=== PATIENT | male | born 1940 | race Caucasian/White ===

== ENCOUNTER 2017-07-23 20:45 | Inpatient (IN) | payer OTHER ==
--- NOTE | 2017-07-23 21:06 | CPEKG ---
Heart Rate: 80 RR Interval: 750 P-R Interval: 204 QRSD Interval: 146 QT Interval: 428 QTC Interval: 494 P Micro: 75 QRS Micro: 7 T Wave Micro: 119 EKG Severity - ABNORMAL ECG - EKG Impression: SINUS RHYTHM EKG Impression: LEFT BUNDLE BRANCH BLOCK Electronically Signed By: Noman Drummond 23-Jul-2017 22:40:35
[2017-07-23] MEDS ORDERED: ASPIRIN 81 MG CHEWABLE TAB PO ONE (21:10)
[2017-07-23 21:15] LABS: PLATELET COUNT 221 10^3/uL (150-400)
[2017-07-23] MEDS ORDERED: NS 1,000 ML IV ONE ×2 (21:38→22:26)
--- NOTE | 2017-07-23 21:57 | EDPHY ---
H & P Stated Complaint: chest pain with cough Time Seen by Provider: 07/23/17 21:05 HPI/ROS: This pt. reports onset of coryza with sore throat 2 weeks ago followed by cough - dry & hacking in nature over the past few days associated with shortness of breath and chest pain. He reports that the pain is chest is achy in nature worse with a deep breath or cough and the symptoms concerned him for potential PE as he had similar symptoms with his pulmonary embolism a little over a year ago aunt's stop taking the Eliquis after 1 year of treatment in June-last month. ROS: Low-grade fevers over the past 24 hr. No high fevers or chills. No other constitutional symptoms. HEENT: As per HPI. No facial pain. No ear pain. Pulmonary: No sputum production. No hemoptysis. No respiratory distress. Cardiovascular: No heart palpitations. He does have a mild ache in between deep breaths in the same area of his dtuuu-scdj-ahrza. This pain does not radiate. No leg swelling or pain GI: No nausea vomiting or diarrhea : No complaints Integumentary: No complaints Endocrine: No complaints Neuro: No numbness or tingling. 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 cardiomyopathy, HTN. PRIOR LBBB per family - Family History Significant Family History: No pertinent family hx - Social History Smoking Status: Never smoked Alcohol Use: None Drug Use: None Additional Social History: No recent prolonged travel or immobilization. - Physical Exam Exam: Vital signs notable for mild hypoxia on room air at 92%. Other vitals are normal except for low-grade fever of 38 centigrade General Appearance: Alert, no distress. Eyes: Pupils equal and round no pallor or injection. ENT, Mouth: Mucous membranes moist. Respiratory: There are no retractions, lungs are clear to auscultation. Cardiovascular: Regular rate and rhythm. No murmur gallop or rub Gastrointestinal: Abdomen is soft and nontender, no masses, bowel sounds normal. Neurological: GCS 15 with no focal deficits Skin: Warm and dry, no rashes. Musculoskeletal: Neck is supple nontender. Extremities are symmetrical, full range of motion. Psychiatric: Mood and affect are normal DIFFERENTIAL DIAGNOSIS: After history and physical exam differential diagnosis was considered for pulmonary embolism, pneumonia, bronchitis, influenza, myocardial ischemia Constitutional: Initial Vital Signs Temperature (C) 37.9 C 07/23/17 20:49 Heart Rate 82 07/23/17 20:49 Respiratory Rate 20 07/23/17 20:49 Blood Pressure 168/94 H 07/23/17 20:49 O2 Sat (%) 92 07/23/17 20:49 O2 Delivery Mode Room Air Allergies/Adverse Reactions: No Known Allergies Allergy (Unverified 07/23/17 20:53) Home Medications: Medication Instructions Recorded Carvedilol 07/23/17 Medical Decision Making - Diagnostics EKG Interpretation: 12 lead EKG performed shortly after arrival indication chest pain Sinus rhythm on this EKG performed at 9:02 p.m. Intervals: To P R of 2 4, QRS of 146, QTC of 494 [place]: P of 75, QRS of 7, T1 18 Overall assessment sinus rhythm with left bundle branch block. No previously performed EKGs available for comparison. Patient's family gives verbal report that he had a left bundle branch block in the past. Imaging Results: Two view chest x-ray: Mild airway disease by my interpretation without other significant abnormalities. CT angio chest with saddle embolism straddling the bifurcation, but without complete obstruction or evidence of right heart strain Imaging: Discussed imaging studies w/ carbon dioxide operator Radiologist (CT angio chest I discussed with Dr. Quintanilla), I viewed and interpreted images myself (Chest x- ray) ED Course/Re-evaluation: IV, monitor, nasal cannula O2 Aspirin 324 Upon review of patient's labs-mild leukocytosis, normal chemistries, normal troponin, significantly elevated D-dimer I add on coags and ordered CT angio chest. Given patient's elevated creatinine use given normal saline bolus 1st and will use a care management associate dye load and then follow with a 2nd L saline after the study. I spoke with patient in his family regarding his elevated D-dimer the need to proceed with CT angio. Patient understands and is comfortable with the plan. At 10:25 p.m. he is in the CT scanner CT angio chest confirms pulmonary embolism-saddle embolism straddling the bifurcation but without complete obstruction or evidence of right heart strain. I counseled patient regarding this finding any started on Lovenox after conversation with hospitalist Dr. Pryor with plan to admit to PCU. Patient is accepted to the PCU at [facility] A call was placed to our hospitalist at 11:10 p.m. waiting their call back to secure transfer and admission. 2nd L normal saline bolus upon patient's return from CT scan Total bedside critical care time: 15 min The patient remains hemodynamically stable. He reports 4-5/10 chest discomfort but declines any analgesics at this time. - Data Points Laboratory Results: Laboratory Results 07/23/17 21:05 07/23/17 21:05 07/23/17 07/23/17 07/23/17 23:05 21:05 21:05 WBC RBC Hgb Hct MCV MCH MCHC RDW Plt Count MPV Neut % (Auto) Lymph % (Auto) [place] % (Auto) Eos % (Auto) Baso % (Auto) Nucleat RBC Rel Count Absolute Neuts (auto) Absolute Lymphs (auto) Absolute Monos (auto) Absolute Eos (auto) Absolute Basos (auto) Absolute Nucleated RBC Immature Gran % Immature Gran # PT 13.6 SEC SEC (12.0-15.0) INR 1.05 (0.83-1.16) APTT 34.8 SEC SEC (23.0-38.0) D-Dimer 7.75 ug/mLFEU H ug/mLFEU (0.00-0.50) Sodium Potassium Chloride Carbon Dioxide Anion Gap BUN Creatinine Estimated GFR Glucose Calcium Troponin I NT-Pro-B Natriuret Pep Pending Influenza A,B Rapid NEGATIVE FOR FLU (NEGATIVE) 07/23/17 07/23/17 21:05 21:05 WBC 11.32 10^3/uL H 10^3/uL (3.80-9.50) RBC 5.16 10^6/uL 10^6/uL (4.40-6.38) Hgb 14.6 g/dL g/dL (13.7-17.5) Hct 43.9 % % (40.0-51.0) MCV 85.1 fL fL (81.5-99.8) MCH 28.3 pg pg (27.9-34.1) MCHC 33.3 g/dL g/dL (32.4-36.7) RDW 12.6 % % (11.5-15.2) Plt Count 221 10^3/uL 10^3/uL (150-400) MPV 9.6 fL fL (8.7-11.7) Neut % (Auto) 67.8 % % (39.3-74.2) Lymph % (Auto) 20.7 % % (15.0-45.0) Bucks % (Auto) 8.8 % % (4.5-13.0) Eos % (Auto) 1.8 % % (0.6-7.6) Baso % (Auto) 0.4 % % (0.3-1.7) Nucleat RBC Rel Count 0.0 % % (0.0-0.2) Absolute Neuts (auto) 7.67 10^3/uL H 10^3/uL (1.70-6.50) Absolute Lymphs (auto) 2.34 10^3/uL 10^3/uL (1.00-3.00) Absolute Monos (auto) 1.00 10^3/uL H 10^3/uL (0.30-0.80) Absolute Eos (auto) 0.20 10^3/uL 10^3/uL (0.03-0.40) Absolute Basos (auto) 0.05 10^3/uL 10^3/uL (0.02-0.10) Absolute Nucleated RBC 0.00 10^3/uL 10^3/uL (0-0.01) Immature Gran % 0.5 % % (0.0-1.1) Immature Gran # 0.06 10^3/uL 10^3/uL (0.00-0.10) PT INR APTT D-Dimer Sodium 140 mEq/L mEq/L (135-145) Potassium 4.2 mEq/L mEq/L (3.5-5.2) Chloride 102 mEq/L mEq/L (97-110) Carbon Dioxide 22 mEq/l mEq/l (22-31) Anion Gap 16 mEq/L mEq/L (8-16) BUN 21 mg/dL mg/dL (7-23) Creatinine 1.7 mg/dL H mg/dL (0.7-1.3) Estimated GFR 39 Glucose 148 mg/dL H mg/dL (70-100) Calcium 8.7 mg/dL mg/dL (8.5-10.4) Troponin I 0.019 ng/mL ng/mL (0.000-0.034) NT-Pro-B Natriuret Pep Influenza A,B Rapid Medications Given: Discontinued Medications Aspirin (Aspirin) 324 mg PO EDNOW ONE Stop: 07/23/17 21:11 Last Admin: 07/23/17 21:20 Dose: 324 mg Benzonatate (Tessalon Pearles) 200 mg PO EDNOW ONE Stop: 07/23/17 21:59 Last Admin: 07/23/17 22:01 Dose: 200 mg Sodium Chloride (Ns) 1,000 mls @ 0 mls/hr IV ONCE ONE; Wide Open PRN Reason: Protocol Stop: 07/23/17 21:39 Last Admin: 07/23/17 21:42 Dose: 1,000 mls Sodium Chloride (Ns) 1,000 mls @ 0 mls/hr IV ONCE ONE; Wide Open PRN Reason: Protocol Stop: 07/23/17 22:27 Last Admin: 07/23/17 22:48 Dose: 1,000 mls Departure - Departure Disposition: [facility] In[facility] Acute Clinical Impression: Renal insufficiency Pulmonary embolism Qualifiers: Pulmonary embolism type: saddle Chronicity: acute Acute cor pulmonale presence : without acute cor pulmonale Qualified Code(s): I26.92 - Saddle embolus of pulmonary artery without acute cor pulmonale Condition: Serious Referrals: Neftali Patel DO [Primary Care Provider] - As per Instructions
[2017-07-23] MEDS ORDERED: BENZONATATE 100 MG CAP PO ONE (21:58)
[2017-07-23] MEDS ORDERED: IOPAMIDOL (ISOVUE 370) 100 ML BTL IV ONE (22:05)
[2017-07-23 22:07] LABS: INR 1.05 (0.83-1.16); PROTIME(PATIENT) 13.6 SEC (12.0-15.0)
[2017-07-23] MEDS ORDERED: HEPARIN 10,000 UNIT/10 ML MDV IVP ONE (23:15)
[2017-07-23] MEDS ORDERED: HEPARIN/DEXTROSE 500 ML IV ONE (23:15)
[2017-07-23] MEDS ORDERED: ACETAMINOPHEN 325 MG TAB PO PRN (23:27)
[2017-07-23] MEDS ORDERED: ONDANSETRON DISINTEGRATING 4 MG TAB PO PRN (23:27)
[2017-07-23] MEDS ORDERED: ONDANSETRON 4 MG/2 ML VIAL IVP PRN (23:27)
[2017-07-23] MEDS ORDERED: ENOXAPARIN 100 MG/ML SYR SC ONE (23:28)
--- NOTE | 2017-07-24 00:18 | PDGENHP ---
History and Physical - Chief Complaint SOB - History of Present Illness 76 yo M w/ hx of idiopathic CM, CKD, and PE presented to ED with shortness of breath and chest pain after several weeks of URI symptoms. Patient had seen his PCP on two occasions over the last week for URI symptoms. Then over the last day he developed shortness of breath and chest pain, worse with deep inspiration or cough. He was concerned because these symptoms resembled those of his last PE, a little over a year ago. He was on Eliquis for a year but stopped in June at the direction of his physician. In the ED CTA of his chest was notable for a non-obstructing saddle pulmonary embolus. Patient has been hemodynamically stable and has no laboratory or ECG evidence of R heart strain at this time. He is on room air and will be admitted to the PCU for observation. History Information - Allergies/Home Medication List Allergies/Adverse Reactions: No Known Allergies Allergy (Unverified 07/23/17 20:53) Home Medications: Carvedilol 3.125 07/23/17 [Last Taken Unknown] Losartan Potassium [Cozaar] 75 mg PO 07/23/17 [Last Taken Unknown] I have personally reviewed and updated: family history, medical history - Past Medical History Additional medical history: CKD. PE. Idiopathic CM - Surgical History Additional surgical history: Bladder reconstruction. R TKA - Family History Additional family history: Asked, denies - Social History Smoking Status: Never smoked Alcohol Use: None Drug Use: None Review of Systems Review of Systems: ROS: 10pt was reviewed & negative except for what was stated in HPI & below Physical Exam Physical Exam: Temp Pulse Resp BP Pulse Ox 37.9 C 75 16 153/66 H 93 07/23/17 20:49 07/23/17 22:50 07/23/17 22:50 07/23/17 22:50 07/23/17 22:50 Lab Data & Imaging Review 07/23/17 21:05 07/23/17 21:05 WBC 11.32 10^3/uL (3.80-9.50) H 07/23/17 21:05 RBC 5.16 10^6/uL (4.40-6.38) 07/23/17 21:05 Hgb 14.6 g/dL (13.7-17.5) 07/23/17 21:05 Hct 43.9 % (40.0-51.0) 07/23/17 21:05 MCV 85.1 fL (81.5-99.8) 07/23/17 21:05 MCH 28.3 pg (27.9-34.1) 07/23/17 21:05 MCHC 33.3 g/dL (32.4-36.7) 07/23/17 21:05 RDW 12.6 % (11.5-15.2) 07/23/17 21:05 Plt Count 221 10^3/uL (150-400) 07/23/17 21:05 MPV 9.6 fL (8.7-11.7) 07/23/17 21:05 Neut % (Auto) 67.8 % (39.3-74.2) 07/23/17 21:05 Lymph % (Auto) 20.7 % (15.0-45.0) 07/23/17 21:05 [place] % (Auto) 8.8 % (4.5-13.0) 07/23/17 21:05 Eos % (Auto) 1.8 % (0.6-7.6) 07/23/17 21:05 Baso % (Auto) 0.4 % (0.3-1.7) 07/23/17 21:05 Nucleat RBC Rel Count 0.0 % (0.0-0.2) 07/23/17 21: Absolute Neuts (auto) 7.67 10^3/uL (1.70-6.50) H 07/23/17 21:05 Absolute Lymphs (auto) 2.34 10^3/uL (1.00-3.00) 07/23/17 21:05 Absolute Monos (auto) 1.00 10^3/uL (0.30-0.80) H 07/23/17 21:05 Absolute Eos (auto) 0.20 10^3/uL (0.03-0.40) 07/23/17 21:05 Absolute Basos (auto) 0.05 10^3/uL (0.02-0.10) 07/23/17 21:05 Absolute Nucleated RBC 0.00 10^3/uL (0-0.01) 07/23/17 21:05 Immature Gran % 0.5 % (0.0-1.1) 07/23/17 21:05 Immature Gran # 0.06 10^3/uL (0.00-0.10) 07/23/17 21:05 PT 13.6 SEC (12.0-15.0) 07/23/17 21:05 INR 1.05 (0.83-1.16) 07/23/17 21:05 APTT 34.8 SEC (23.0-38.0) 07/23/17 21:05 D-Dimer 7.75 ug/mLFEU (0.00-0.50) H 07/23/17 21:05 Sodium 140 mEq/L (135-145) 07/23/17 21:05 Potassium 4.2 mEq/L (3.5-5.2) 07/23/17 21:05 Chloride 102 mEq/L (97-110) 07/23/17 21:05 Carbon Dioxide 22 mEq/l (22-31) 07/23/17 21:05 Anion Gap 16 mEq/L (8-16) 07/23/17 21:05 BUN 21 mg/dL (7-23) 07/23/17 21:05 Creatinine 1.7 mg/dL (0.7-1.3) H 07/23/17 21:05 Estimated GFR 39 07/23/17 21:05 Glucose 148 mg/dL (70-100) H 07/23/17 21:05 Calcium 8.7 mg/dL (8.5-10.4) 07/23/17 21:05 Troponin I 0.019 ng/mL (0.000-0.034) 07/23/17 21:05 NT-Pro-B Natriuret Pep 469 pg/mL (0-450) H 07/23/17 21:05 Influenza A,B Rapid NEGATIVE FOR FLU (NEGATIVE) 07/23/17 23:05 Imaging Review: Imaging Impressions Chest X-Ray 07/23/17 21:05 Impression: Bibasilar atelectasis. Chest/Thorax CTA 07/23/17 22:00 Impression: 1. Saddle pulmonary embolism, as above. 2. Patchy left upper lobe opacities which may represent early infarcts. 3. If lower lobe nodule measuring 0.4 x 0.7 cm. Per Fleischner Society 2017 guidelines, recommend follow-up CT chest in 6-[address] Schneider discussed these findings by telephone with XOCHILT KIM on 06/2018 23:05 hours. Visualized and Interpreted EKG results: Yes EKG Interpretation: Positive for: left bundle branch block, normal sinsus rhythm Assessment & Plan Assessment: 76 yo M w/ hx of CKD, idiopathic CM, and PE presents with saddle pulmonary embolus. Plan: 1. Saddle pulmonary embolus - Patient hemodynamically stable and oxygenating well on RA. Troponin negative and BNP only mildly elevated at 469. ECG shows LBBB but unclear if this is new. PESI 87 denoting intermediate risk mostly for age. This is his second episode of PE, last a little over a year ago. He stopped Eliquis a little of a year ago. - Admit to PCU for observation, monitor on telemetry - Will order TTE due to history of cardiomyopathy and location of clot despite lack of significant laboratory evidence of R heart strain - Will restart Eliquis as patient was on this for the last year (No dose adjustment needed for CrCL>15 mL/min) 2. Hx of idiopathic CM - Patient reports >20 yr history of this, does not recall last EF but thinks it was greater than 50%. On Losartan and Coreg as outpatient. 3. Hx CKD - Possibly from complication of distant bladder surgery where he lost L kidney. Cr 1.7 on admission, which is at or better than baseline per patient noting calculated GFR of 39. - Avoid nephrotoxic meds, especially noting contrast load for CTA - Monitor BMP Diet - Regular Code - Full Ppx - Eliquis Dispo - Admit to PCU for observation
[2017-07-24] MEDS ORDERED: GUAIFENESIN/DM 10 ML UDCUP PO PRN (02:20)
[2017-07-24] MEDS ORDERED: APIXABAN 5 MG TAB PO SCH (09:00)
--- NOTE | 2017-07-24 09:52 | ECHO ---
[email or web address] [address] [address] Main: [phone] Fax: Transthoracic Echocardiogram Name: JHONATAN GALVEZ MR#: [id number] Study Date: 07/24/2017 Study Time: 08:05 AM Date of : 1940 Age: 76 year(s) Height: 182.9 cm (72 in.) Weight: 88.45 kg (195 lb.) BSA: 2.11 m2 Gender: Male Examination: Echo Indication: Image Quality: Adequate Contrast: Requested by: Travis Benitez BP: / Heart Rate: Rhythm: Indication: Procedure Staff Slubber Machine Operator: Michelle Coffey Reading Physician: Fiona Lyons Requesting Provider: Conclusions: Normal size left ventricle. Normal global systolic LV function. EF is 66 %. The basal inferoseptal, mid inferoseptal and apical septal wall segments are hypokinetic. Normal size right ventricle. Normal RV function. No significant valvular disease There is no previous echocardiogram for comparison. Measurements: Chambers Valvular Assessment AV/MV Valvular Assessment TV/PV Normal Normal Normal Name Value Range Name Value Range Name Value Range IVSd (2D): 1.1 cm (0.6 cm-1.1 AV meanP mmHg ( - ) PV Vmax: 0.85 m/s (0.6 m/s-0.9 cm) LVOT Vmax: 0.76 m/s (0.7 m/s-1.1 m/s) LVDd (2D): 5.0 cm (4.2 cm-5.9 m/s) PV PGmax: 3 mmHg ( - ) cm) MV E Vmax: 0.46 m/s ( - ) LVDs (2D): 3.3 cm (2.1 cm-4 MV A Vmax: 0.54 m/s ( - ) cm) MV E/A: 0.85 ( - ) LVPWd (2D): 1.1 cm (0.6 cm-1 cm) LVEF (BP): 66 % (>=55 %) RVDd(2D): 4.0 cm (1.9 cm-3.8 cmmm) Continued Measurements: Chambers Valvular Assessment AV/MV Name Value Name Value LADs Lon.3 cm MV DecTime: 246 m/s Patient: JHONATAN GALVEZ Study Date: 07/24/2017 Page 1 of 2 08:05 AM LA Area: 20.6 cm2 MV E/E' Septal: 6.10 LA Volume: 68 ml MV E/E' Lateral: 6.30 LA Volume Index: 32.2 ml/m2 TAPSE: 2.1 cm Additional Vessels Name Value Ao Ascendin.7 cm Findings: Left Ventricle: Normal size left ventricle. Normal global systolic LV function. EF is 66 %. The basal inferoseptal, mid inferoseptal and apical septal wall segments are hypokinetic. Right Ventricle: Normal size right ventricle. Normal RV function. Left Atrium: The left atrium is normal in size. Right Atrium: The right atrium is normal in size. Mitral Valve: The mitral valve is normal in appearance and function. There is no significant mitral valve regurgitation. No mitral stenosis is present. Aortic Valve: The aortic valve is normal in appearance and function. Trivial aortic valve regurgitation. No aortic valve stenosis is present. Tricuspid Valve: The tricuspid valve is normal in appearance and function. There is no significant tricuspid valve regurgitation. Pulmonic Valve: Pulmonary valve not well visualized. There is no pulmonic regurgitation seen. Aorta: Normal size ascending aorta measuring 3.7 cm. Pericardium: No pericardial effusion. There is pericardial fat. (No Signature Object) Wall Motion Scores Patient: JHONATAN GALVEZ Study Date: 07/24/2017 Page 2 of 2 08:05 AM [id number]
[2017-07-24] MEDS: BENZONATATE 100 MG CAP PO PRN ×2 (09:53→22:11)
[2017-07-24 10:14] LABS: PLATELET COUNT 204 10^3/uL (150-400)
--- NOTE | 2017-07-24 15:09 | ASMTCMCOM ---
CM Note CM Note Notes: Patient admitted with a saddle embolism. He is being observed in the PCU and medications are being adjusted. Patient lives indepedently with ; no discharge needs anticipated. CM available if that changes. Date Signed: 07/24/2017 03:08 PM Electronically Signed By:Rosibel Rivers RN
[2017-07-24] MEDS ORDERED: OXYCODONE/APAP 5/325 TAB PO PRN (15:18)
--- NOTE | 2017-07-24 15:19 | HOSPPROG ---
Hospitalist Progress Note Assessment/Plan: # Acute Saddle pulmonary embolus - Patient hemodynamically stable - Troponin negative Echo (reviewed) no right heart strain - oxygen saturations 94% on 3 L - starting Eliquis low 10 mg twice daily - DC with Eliquis 5 mg twice daily after 7 daily load- calculated to creatinine clearance - needs p.r.n. pain meds to improve respiratory mechanics # AHRF - secondary to saddle pulmonary embolus- continue pain control and oxygen supplementation - continue anticoagulation # Hx of idiopathic CM - cont Losartan and Coreg as outpatient. # Hx CKD - Possibly from complication of distant bladder surgery where he lost L kidney. Cr 1.7 - 1.6 this am - Avoid nephrotoxic meds - Monitor BMP Diet - Regular Code - Full Ppx - Eliquis Dispo - inpatient as needs ongoing medication titration for pain and vital sign monitoring I have discussed the case with RN - need to work on pain management to optimize respiratory mechanics and improve oxygenation Subjective: pain with deep inspiration Objective: Vital Signs Temp Pulse Resp BP Pulse Ox 36.6 C 54 L 20 113/57 L 95 07/24/17 12:00 07/24/17 12:00 07/24/17 12:00 07/24/17 12:00 07/24/17 12:00 Laboratory Results 07/24/17 09:45 07/24/17 09:45 07/23/17 07/24/17 07/25/17 05:59 05:59 05:59 Intake Total 2300 Output Total 470 200 Balance 1830 -200 PT 13.6 SEC (12.0-15.0) 07/23/17 21:05 INR 1.05 (0.83-1.16) 07/23/17 21:05 - Physical Exam Constitutional: no apparent distress Eyes: anicteric sclera Ears, Nose, Mouth, Throat: moist mucous membranes Cardiovascular: regular rate and rhythym Respiratory: no respiratory distress, reduced air movement Gastrointestinal: normoactive bowel sounds Genitourinary: no bladder fullness Skin: warm Musculoskeletal: No asymmetric calves Neurologic: AAOx3 Psychiatric: anxious Lymph, Heme, Immunologic: no cervical LAD ICD10 Worksheet Patient Problems: Problems Problem Status Onset Pulmonary embolism Acute Renal insufficiency Acute
--- NOTE | 2017-07-24 15:54 | PDMN ---
Medical Necessity Medical necessity: C/M review: est. > 2 MN LOS for eval and TX of acute and persistent - saddle pulmonary embolus, hypoxemic respiratory failure, pain, requiring ongoing oral Eliquis, pain med titration and managemrnt, cardiac monitoring, pulse oximetry, supplemental O2, comorbid history of idiopathic cardiomyopathy, chronic kidney disease per 07/24/2017 Hospitalist progress note.
[2017-07-24] MEDS ORDERED: CARVEDILOL 3.125 MG TAB PO SCH (18:00)
[2017-07-24] MEDS: CARVEDILOL 3.125 MG TAB PO SCH (18:28)
[2017-07-24] MEDS: APIXABAN 5 MG TAB PO SCH (19:45)
[2017-07-24] MEDS ORDERED: LOSARTAN POTASSIUM 50 MG TAB PO SCH ×2 (21:00)
[2017-07-25 08:52] VITALS: BP 144/66; RESP 11; TEMP 98; O2SAT 96
[2017-07-25] MEDS: CARVEDILOL 3.125 MG TAB PO SCH (09:03)
[2017-07-25 09:07] VITALS: PULSE 60
[2017-07-25] MEDS: APIXABAN 5 MG TAB PO SCH (09:07)
--- NOTE | 2017-07-25 18:42 | GDS ---
[f rep st] DISCHARGE SUMMARY DISCHARGE DIAGNOSES: Include: 1. Acute saddle pulmonary embolus. 2. Acute hypoxic respiratory failure secondary to pulmonary embolism. 3. Idiopathic cardiomyopathy. 4. Chronic kidney disease. HISTORY OF PRESENT ILLNESS: This is a 76-year-old male who presents with chest pain. For details of the patient's initial presentation, please see the history and physical dated 07/23/2017. CONSULTATIVE SERVICES: None. PROCEDURES: On 07/23/2017, patient had a CTA of the chest that confirms nonobstructing saddle pulmon katelynn embolus. 07/24/2017, patient had a transthoracic echocardiogram that confirms normal LV size and function. HOSPITAL COURSE BY ISSUE: 1. Acute saddle pulmonary embolus. The patient was initially started on heparin anticoagulation the n transitioned to Eliquis, appropriately renally dosed. The patient tolerated anticoagulation withou t complication and was weaned off oxygen during the 48 hours of his hospital stay. Because this was his second episode of clotting, he should remain on lifelong anticoagulation. Patient will follow in the outpatient setting with his primary care provider for his first post-disposition evaluation back on anticoagulation. 2. Acute hypoxic respiratory failure secondary to PE. The patient was treated for pleuritic chest p ain and had markedly improved respiratory mechanics overnight. Was saturating in the 90s on room air at the time of disposition. MEDICATIONS AT THE TIME OF TRANSFER: Please reference the med rec printed 07/25/2017. FOLLOWUP APPOINTMENTS: Include with his primary care provider in the next 3-4 weeks, prior to comple tion of his first month of anticoagulation, and the PCP can renew his prescription after evaluation. PENDING STUDIES: At the time of this dictation are none. TIME SPENT: I spent greater than 30 minutes in the planning and coordination of this discharge. /[id number]/MODL
--- NOTE | 2017-07-26 11:49 | ASDISCHSUM ---
Discharge Information Plan Status:Home with No Needs Medically Cleared to Leave: Discharge Date:07/25/2017 10:00 AM CM D/C Disposition:Home, Routine, Self-Care ADT D/C Disposition:Home, Routine, Self-Care Projected Discharge Date:07/25/2017 10:00 AM Transportation at D/C:Family Discharge Delay Reason: Follow-Up Date:07/25/2017 10:00 AM Discharge Slot: Final Diagnosis: Placement Information Patient Contact Information Contact Name:ALIYAH Relationship: Address:[address] City:[place] Alternate Phone: State/Zip Code:[place] [address] Email: Financial Information Financial Class: Primary Plan Desc:MEDICARE INPATIENT Primary Plan Number:[id number] Secondary Plan Desc:[facility] Secondary Plan Number:[id number] Assessment Information [facility] CM Progress Note CM Note CM Note Notes: Patient admitted with a saddle embolism. He is being observed in the PCU and medications are being adjusted. Patient lives indepedently with ; no discharge needs anticipated. CM available if that changes. Date Signed: 07/24/2017 03:08 PM Electronically Signed By:Rosibel Rivers RN Intervention Information Intervention Type:*Occurence 72 Date of Service:07/23/2017 11:27 PM Patient Type:Inpatient Staff Member:JANELLE Weaver Shelly Hours:0.25 Discipline: Severity:1 (0-1 Hours) Comment:[facility] 72 for 07/23/2017 23:27 to 8 15:21 as patient discharged 07/25/2017 08:42 (< 2 MN LOS after patient admission status changed from observation to inpatient) .
== END 2017-07-25 10:00 | disposition home or self-care (01) | DRG 175 ==
LOC: CED 20:45 → CEDHOLD 23:27 → F2W 07-24 01:57 → OBSVTOIN 07-24 15:21
PROVIDERS: ADMIT Student in an Organized Health Care Education/Training Program; ATTEND Student in an Organized Health Care Education/Training Program
DX: I26.92 Saddle embolus of pulmonary artery without acute cor pulmonale (principal); J96.01 Acute respiratory failure with hypoxia; I42.9 Cardiomyopathy, unspecified; I12.9 Hypertensive chronic kidney disease with stage 1 through stage 4 chronic kidney disease, or unspecified chronic kidney disease; N18.9 Chronic kidney disease, unspecified; Z86.711 Personal history of pulmonary embolism; Z86.718 Personal history of other venous thrombosis and embolism
CPT/HCPCS: 71046-PO; 71275-PO; 80048-PO; 83880-PO; 84484-PO; 85025-PO; 85378-PO; 85610-PO; 85730-PO; 87400-PO; G0378; J1644; J1650; Q9967